=== PATIENT | male | born 1970 | race Caucasian/White ===

== ENCOUNTER → 2016-07-16 | Day surgery (SDC) | payer OTHER, SELFPAY ==
[2016-07-16] VITALS (10 sets, daily range): BP systolic 115–174; BP diastolic 77–116
[~2016-07-16] VITALS: Ht 177.8 cm; Wt 115.7 kg
[~2016-07-16] MED LIST: Akten 3.5% 1ml Btl ONE; BSS 15ml BTL ONE; BSS 500ml btl ONE; Dexamethasone 4mg/ml vial ONE; Diclofenac Sod 0.1% Op Soln ONE; EPINEPHrine 1mg/1ml Amp ONE; FLONASE ALLERG9.9 ML NS; GLIMEPIRIDE4 MG ORAL; Gatifloxacin Opth Solution 0.5% ONE; JANUVIA25 MG ORAL; LIPITOR40 MG ORAL; LOSARTAN POTASS50 MG ORAL; LR 1000ml ONE; Labetalol 5mg/ml 20ml vial IV ONE; Lidocaine 1% MPF 10mg/ml 5ml ONE; METFORMIN HCL1000 M1 ORAL; Midazolam 2mg/2ml Inj ONE; NS Irrig 1000ml ONE; Phenylephrine 2.5% Op Soln ONE; Povidone-Iodine 5% opth solution ONE; Sodium Hyaluronate 14 mg/ml 0.85ml ONE; Sterile Water Irrig 1000ml IRRIG ONE; Tobradex Opth Susp 2.5ml ONE; Tropicamide 1% Opth Soln ONE; ZYRTEC10 MG ORAL
[2016-07-16] MEDS: Tobradex Opth Susp 2.5ml LEFT EYE SCH ×3 (06:53→07:18)
[2016-07-16] MEDS: Diclofenac Sod 0.1% Op Soln LEFT EYE SCH ×3 (06:53→07:17)
[2016-07-16] MEDS: Phenylephrine 2.5% Op Soln LEFT EYE SCH ×3 (06:53→07:18)
[2016-07-16] MEDS: Akten 3.5% 1ml Btl LEFT EYE SCH ×3 (06:54→07:17)
[2016-07-16] MEDS: Tropicamide 1% Opth Soln LEFT EYE SCH ×3 (06:54→07:18)
[2016-07-16] MEDS: Gatifloxacin Opth Solution 0.5% LEFT EYE SCH ×3 (06:54→07:18)
--- NOTE | 2016-07-16 07:37 | Pre-Procedure Note/Attestation ---
Pre-Procedure Note/Attestation Complete Prior to Procedure Planned Procedure: left Procedure Narrative: cataract extraction with implant left eye Indications for Procedure Pre-Operative Diagnosis: cataract left eye Attestation I attest that I discussed the nature of the procedure; its benefits; risks and complications; and alternatives (and the risks and benefits of such alternatives ), prior to the procedure, with the patient (or the patient's legal escrow representative). I attest that, if there was a reasonable possibility of needing a blood transfusion, the patient (or the patient's legal escrow representative) was given the [facility] standardized written summary, pursuant to the Raymond Kayleigh Blood Safety Act ([place] Health and Safety Code # 1645, as amended). I attest that I re-evaluated the patient just prior to the surgery and that there has been no change in the patient's H&P, except as documented below: GEORGE MCCONNELL Jul 16, 2016 07:37
--- NOTE | 2016-07-16 08:35 | Anethesia Preoperative Eval ---
Anesthesia Pre-op PMH/ROS General Date of Evaluation: Jul 16, 2016 Time of Evaluation: 08:15 Anesthesiologist: tracy ASA Score: ASA 1 Mallampati Score Class I : Soft palate, uvula, fauces, pillars visible Class II: Soft palate, uvula, fauces visible Class III: Soft palate, base of uvula visible Class IV: Only hard plate visible Mallampati Classification: Class II Surgeon: kyleigh Diagnosis: cataract Surgical Procedure: cataract extraction left eye Anesthesia History: none Family History: no anesthesia problems Allergies: Coded Allergies: CIRO INHIBITORS (Verified Adverse Reaction, Severe, Coughing, 07/15/16) REPAGLINIDE (Verified Adverse Reaction, Severe, Photosensitivity/nausea/ vomiting, 07/15/16) Medications: see eMAR Past Medical History Cardiovascular: Reports: HTN Pulmonary: Denies: COPD, RUSS, asthma, other Gastrointestinal/Genitourinary: Denies: CRI, ESRD, GERD, other Neurologic/Psychiatric: Denies: CVA, TIA, dementia, depression/anxiety, other Endocrine: Reports: DM HEENT: Reports: cataract (L) Hematology/Immune: Denies: DVT, anemia, bleeding disorder, other Musculoskeletal/Integumentary: Denies: DDD, DJD, OA, RA, edema, other Other: obesity PSxH Narrative: cataract extraction right eye Anesthesia Pre-op Phys. Exam Physician Exam Last Vital Signs Date Time Temp Pulse Resp B/P Pulse Ox O2 Delivery O2 Flow Rate FiO2 07/16/16 06:47 97.2 85 18 153/93 97 Room Air Constitutional: NAD Neurologic: CN 2-12 intact Cardiovascular: RRR Respiratory: CTA Gastrointestinal: S/NT/ND Airway Exam Mallampati Score: Class III MO: full ROM: full Dentures: no lower, no upper Anesthesia Pre-op A/P Studies Pre-op Studies: EKG - sr Risk Assessment & Plan Plan: mac Status Change Before Surgery: No Pre-Antibiotics Drug: none MARQUEZ BAXTER CRNA Jul 16, 2016 08:35
--- NOTE | 2016-07-16 08:50 | Brief Operative Note ---
Immediate Post Operative Note Operative Note Pre-op Diagnosis: cataract left eye Procedure: phacoemulsification of cataract with implant left eye Post-op Diagnosis: same as pre-op Surgeon: george arizmendi Vacuum Bottle Assembler: none Anesthesiologist: gianfranco molina Anesthesia: MAC Specimen: none Complications: none Condition: stable Estimated Blood Loss: none Drains: none Implant(s) used?: Yes GEORGE ARIZMENDI Jul 16, 2016 08:50
--- NOTE | 2016-07-16 09:08 | Immediate Post-Op Evaluation ---
Immediate Post-Op Evalulation Immediate Post-Op Evalulation Procedure: cataract extraction left eye Date of Evaluation: Jul 16, 2016 Time of Evaluation: 09:06 IV Fluids: 200 Blood Pressure Systolic: 159 Blood Pressure Diastolic: 96 Pulse Rate: 74 Respiratory Rate: 14 O2 Sat by Pulse Oximetry: 98 Temperature (Fahrenheit): 97.5 Nausea: No Vomiting: No Complications none Patient Status: awake, patent Hydration Status: adequate Drug: none TARRILLION,MARQUEZ SEAN Jul 16, 2016 09:08
--- NOTE | 2016-07-16 09:37 | Operative Note - Dictated ---
DATE OF OPERATION: 07/16/2016 PREOPERATIVE DIAGNOSIS: Cataract, left eye. POSTOPERATIVE DIAGNOSIS: Cataract, left eye. PROCEDURE: Phacoemulsification cataract left eye with placement of posterior chamber intraocular lens. SURGEON: Dread Lamb M.D. [employer] SPECIALIST: None. ANESTHESIA: MAC/topical. ANESTHESIOLOGIST: Sandra Luna C.R.N.A. INDICATION FOR PROCEDURE: Poor vision, left eye. DESCRIPTION OF FINDINGS: Dense central posterior subcapsular cataract, left eye. DESCRIPTION OF PROCEDURE: The patient received a topical anesthetic block consisting of 3.5% Akten eye drops. The eye was then prepped and draped in usual manner. A lid speculum was placed. An operating Zeiss microscope was positioned. A temporal corneal groove was made with the royce blade. A SuperSharp blade made a stab incision at the 6 o'clock position. A 0.1 mL of 1% nonpreserved anterior camera lidocaine was injected. Healon was instilled into the anterior chamber and a 2.5/2.8 mm trapezoidal royce blade was used to complete the temporal corneal wound. A cystotome was used to create an anterior capsular flap. Utrata forceps were used to complete the capsulorrhexis. BSS on a cannula was used to hydrodissect the nucleus. The lens nucleus was phacoemulsified in a phaco-fracture technique. Remaining cortical material was removed with the I/A and the posterior capsule polished with the I/A on Cap vac. Healon was reinstilled into the capsular bag and anterior chamber, and an Wu foldable one-piece multiple focal posterior chamber intraocular lens, model SVT5T0, power 21.0 diopter, serial #[id number] was placed in the injector. The lens was put in the capsular bag. The I/A tip was used to remove the Healon and position the lens. The wound edge was hydrated with BSS and a blunt-tipped cannula. The wound was checked and found to be watertight. The patient was asked to look at the coaxial microscope light and the lens was centered on the flexion. The lid speculum was removed. A drop of TobraDex and Zymaxid was placed. A clear plastic shield was taped over the eye. The patient tolerated the procedure well and left the operating room in good condition. Dread Lamb M.D. ([facility]) DR: Kris JOB#: [id number] CC: Dr. Lisseth Kline [facility] MEDICAL CENTERThanh
--- NOTE | 2016-07-16 11:01 | 48 Hour Post Anesthesia Eval ---
Post Anesthesia Evaluation Procedure: cataract extraction left eye Date of Evaluation: Jul 16, 2016 Time of Evaluation: 11:01 Blood Pressure Systolic: 154 0: 100 Pulse Rate: 74 O2 Sat by Pulse Oximetry: 98 Airway: patent Nausea: No Vomiting: No Hydration Status: adequate Cardiopulmonary Status: wnl Mental Status/LOC: patient returned to baseline Post-Anesthesia Complications: none Follow-up care needed: N/A MARQUEZ BAXTER CRNA Jul 16, 2016 11:01
--- NOTE | 2016-07-21 12:40 | Cardiology Report ---
APPROVED REPORT EKG Measurement Heart [id number] Normal sinus rhythm Left anterior fascicular block Abnormal ECG
== END | disposition home or self-care (01) ==
LOC: SUR 05:59 → EDSEX 08:30
DX: H25.042 Posterior subcapsular polar age-related cataract, left eye (principal); E11.9 Type 2 diabetes mellitus without complications; Z79.84 Long term (current) use of oral hypoglycemic drugs; I10 Essential (primary) hypertension; E78.5 Hyperlipidemia, unspecified; J30.9 Allergic rhinitis, unspecified; E66.01 Morbid (severe) obesity due to excess calories; Z68.36 Body mass index [BMI] 36.0-36.9, adult; E55.9 Vitamin D deficiency, unspecified; Z88.8 Allergy status to other drugs, medicaments and biological substances
CPT/HCPCS: 66984; 82962; 93005; J0171; J1100; J2250; J7120; V2632; 94003; 94150